=== PATIENT | male | born 1990 | race African-American/Black ===

== ENCOUNTER 2024-09-29 14:18 | Emergency (ER) | payer SELFPAY ==
[~2024-09-29] VITALS: Ht 177.8 cm; Wt 73.0 kg
[2024-09-29] MEDS: MORPHINE SULFATE 4 MG/ML INJ (FOR IV/IM USE) IV ONE (15:26)
[2024-09-29 15:34] VITALS: TEMP 36.9; O2SAT 100
[2024-09-29] MEDS ORDERED: IBUP-2029 MT (15:41)
[2024-09-29] MEDS: PROPOFOL 200MG/20ML VIAL IV ONE (15:57)
[2024-09-29] MEDS: KETAMINE HCL 50 MG/ML 10ML IV ONE (15:57)
[2024-09-29 16:38] VITALS: BP 143/85; PULSE 100; RESP 14; O2SAT 100
== END 2024-09-29 17:39 | disposition home or self-care (01) ==
LOC: ER 14:26
DX: S43.015A Anterior dislocation of left humerus, initial encounter (principal); Z79.899 Other long term (current) drug therapy; X58.XXXA Exposure to other specified factors, initial encounter; Y93.89 Activity, other specified; Y92.89 Other specified places as the place of occurrence of the external cause; Y99.8 Other external cause status
CPT/HCPCS: 73030; 23650; 99152; 99285; J3490; J2704; J2270; Z7610; 23665